=== PATIENT | female | born 1950 | race Caucasian/White ===

== ENCOUNTER 2025-02-21 07:37 | Outpatient (CLI) | payer MEDICARE | END 2025-02-21 07:38 | disposition home or self-care (01) | LOC: CSHMAMMO 07:37 | PROVIDERS: ATTEND Family Medicine | DX: N63.25 Unspecified lump in the left breast, overlapping quadrants (principal); N64.89 Other specified disorders of breast | CPT/HCPCS: 76642; 77065; G0279 ==